=== PATIENT | female | born 1975 | race African-American/Black ===

== ENCOUNTER 2021-12-31 21:23 | Emergency (ER) | payer MEDICAID ==
[~2021-12-31] VITALS: Ht 165.1 cm; Wt 70.3 kg
--- NOTE | 2021-12-31 21:43 | NUR ---
DR. BUCKNER AT BEDSIDE, MSE IN PROGRESS.
[2021-12-31 21:58] LABS: HEMATOCRIT 37.5 % (31.2-41.9); MEAN CORPUSCULAR HEMOGLOBIN 31.4 uug (24.7-32.8); MEAN CORPUSCULAR VOLUME 91.3 fL (75.5-95.3); PLATELET COUNT (AUTO) 307 K/uL (179-408)
[2021-12-31 22:06] LABS: CARBON DIOXIDE 30 mmol/L (21-32); CHLORIDE 105 mmol/L (98-107); CREATININE 0.8 mg/dL (0.6-1.3); GLUCOSE 92 mg/dL (74-106); POTASSIUM 4.2 mmol/L (3.5-5.1); UREA NITROGEN, BLOOD 11 mg/dL (7-18)
[2021-12-31 22:11] LABS: ALANINE AMINOTRANSFERASE 25 U/L (14-59); ALKALINE PHOSPHATASE 44 U/L (50-136); ASPARTATE AMINOTRANSFERASE 9 U/L (15-37); BILIRUBIN,DIRECT 0.1 mg/dL (0.0-0.2); BILIRUBIN,TOTAL 0.2 mg/dL (0.2-1.0); LIPASE 155 U/L (73-393); TOTAL PROTEIN, SERUM 7.1 g/dL (6.4-8.2)
[2021-12-31] MEDS ORDERED: LANS30CA54 PO (23:02)
[2021-12-31 23:09] VITALS: BP 111/79
--- NOTE | 2021-12-31 23:09 | NUR ---
Patient discharged to home in stable condition. Written and verbal after care instructions given. Patient verbalizes understanding of instructions. Stressed follow up or return to ER for worsening s/s. Steady gait, denies any pain/discomfort upon discharge. Accompanied by family.
== END 2021-12-31 23:10 | disposition home or self-care (01) ==
LOC: ER 21:26
DX: R55 Syncope and collapse (principal); R10.9 Unspecified abdominal pain
CPT/HCPCS: 36415; 83690; 85025; 93005; A4663